=== PATIENT | female | born 1980 | race Caucasian/White ===

== ENCOUNTER 2021-06-24 13:06 | Outpatient (CLI) | payer BC ==
--- NOTE | 2021-06-25 09:14 | XRAY Report ---
PROCEDURE: Foot 3 View RT INDICATIONS: R MEDIAL FOOT PX TECHNIQUE: 3 views of the foot were acquired. COMPARISON: None. FINDINGS: Bones: No fractures or dislocations. No suspicious bony lesions. Soft tissues: No tibiotalar joint effusion. Achilles tendon appears normal. IMPRESSION: No significant osseous abnormality identified. Reviewed by: Colt Peedrson MD on 06/25/2021 9:13 AM PDT Approved by: Colt Pederson MD on 06/25/2021 9:13 AM PDT Station ID: [id number]
== END 2021-06-24 13:07 | disposition home or self-care (01) ==
LOC: DI.N 13:06
PROVIDERS: ATTEND Physician Assistant
DX: M79.671 Pain in right foot (principal)

== ENCOUNTER 2022-03-19 11:01 | Emergency (ER) | payer BC ==
[2022-03-19 11:25] LABS: BASOPHILS # (AUTO) 0.1 10^3/uL (0.0-0.1); BASOPHILS % (AUTO) 0.4 %; EOSINOPHILS # (AUTO) 0.2 10^3/uL (0.0-0.7); EOSINOPHILS % (AUTO) 1.5 %; HCT - HEMATOCRIT 44.6 % (37.0-47.0); HGB - HEMOGLOBIN 15.4 g/dL (12.0-16.0); LYMPHOCYTES # (AUTO) 0.8 10^3/uL (1.5-3.5); LYMPHOCYTES % (AUTO) 5.9 %; MEAN CORPUSCULAR HEMOGLOBIN 30.9 pg (27.0-31.0); MEAN CORPUSCULAR HGB CONC 34.5 g/dL (32.0-36.0); MEAN CORPUSCULAR VOLUME 89.6 fL (81.0-99.0); MEAN PLATELET VOLUME 9.3 fL (7.9-10.8); MONOCYTES # (AUTO) 0.5 10^3/uL (0.0-1.0); NEUTROPHILS # (AUTO) 11.9 10^3/uL (1.5-6.6); NEUTROPHILS % (AUTO) 87.8 %; PLT - PLATELET COUNT 258 10^3/uL (130-450); RED BLOOD COUNT 4.98 10^6/uL (4.20-5.40); RED CELL DISTRIBUTION WIDTH 12.5 % (12.0-15.0); WHITE BLOOD COUNT 13.6 x10^3/uL (4.8-10.8)
--- OUTSIDE RECORDS SUMMARY | 2022-03-19 11:53 | EXTERNAL MEDICAL SUMMARY RPT | Continuity of Care Document ---
:1980 Author Organization [facility] Address [address] [place] [address] Phone Care Team Providers Name Role Phone LIVAN Unavailable Unavailable MD Unavailable Unavailable PFS Unavailable Unavailable Allergies No information. Encounters No information. Medications date description facility 20220227 valacyclovir All 20220227 methocarbamol All 20220227 meloxicam All [id number] valacyclovir All [id number] methocarbamol All [id number] meloxicam All 20220227 valacyclovir All 20220227 methocarbamol All 20220227 meloxicam All Problems date description facility 20220319 Unspecified abdominal pain All 20220319 Abdominal pain, unspecified site All 20220319 Abdominal pain All 20220227 Strain of muscle, fascia and tendon of lower back, initial All encounter 20220227 Lumbar sprain All 20220227 Low back strain All Procedures date description facility 20220227 [facility] forms All 20220227 [facility] Initial Report All 20220227 [facility] All 20220227 [facility] Initial Report All 20220227 [facility] forms All 20220227 [facility] Initial Report All Results No information. Vital Signs date measurement value source 20220227 weight_standard 160 lb 20220227 weight_metric 72.57 kg 20220227 temperature_standard 98.6 F 20220227 temperature_metric 37 C 20220227 respiration_rate 16 /min 20220227 height_standard 64 in 20220227 height_metric 162.56 cm 20220227 heart_rate 70 /min [id number] BP_systolic 117 mm[Hg] 53719493 BP_diastolic 80 mm[Hg] [id number] BMI 27.56 kg/m2 20220227 weight_standard 160 lb 20220227 weight_metric 72.57 kg 20220227 temperature_standard 98.6 F 20220227 temperature_metric 37 C 20220227 respiration_rate 16 /min 20220227 height_standard 64 in 20220227 height_metric 162.56 cm [id number] heart_rate 70 /min 69441569 BP_systolic 117 mm[Hg] 24464574 BP_diastolic 80 mm[Hg] 20220227 BMI 27.56 kg/m2 20220319 weight_standard 161 lb 20220319 weight_metric 73.03 kg 20220319 temperature_standard 98.6 F 20220319 temperature_metric 37 C 20220319 respiration_rate 18 /min 20220319 height_standard 64 in 20220319 height_metric 162.56 cm 20220319 heart_rate 71 /min 20220319 BP_systolic 135 mm[Hg] 20220319 BP_diastolic 80 mm[Hg] 20220319 BMI 27.74 kg/m2
[2022-03-19 11:58] LABS: ALBUMIN 4.9 g/dL (3.2-5.5); ALBUMIN/GLOBULIN RATIO 1.5 (1.0-2.2); CALCIUM 9.4 mg/dL (8.5-10.3); CREATININE 0.6 mg/dL (0.4-1.0); TOTAL PROTEIN 8.1 g/dL (6.7-8.2)
[2022-03-19 12:00] LABS: BILIRUBIN,URINE NEGATIVE (NEGATIVE); GLUCOSE, URINE (UA) NEGATIVE (NEGATIVE); KETONES,URINE (UA) TRACE mg/dL (NEGATIVE); LEUKOCYTE ESTERASE, URINE NEGATIVE (NEGATIVE); NITRITE,URINE NEGATIVE (NEGATIVE); OCCULT BLOOD,URINE NEGATIVE (NEGATIVE); PROTEIN,URINE NEGATIVE (NEGATIVE); UROBILINOGEN,URINE 0.2 (NORMAL) E.U./dL (NORMAL)
[2022-03-19] MEDS ORDERED: KETOROLAC 15 MG/ML VIAL IVP STA (12:01)
[2022-03-19 12:06] LABS: CLARITY,URINE CLEAR (CLEAR); HCG UR QUAL NEGATIVE
--- NOTE | 2022-03-19 12:07 | ED Physician Documentation ---
PD HPI ABD PAIN - Stated complaint Stated Complaint: ABD PX - Chief complaint Chief Complaint: Abd Pain - Additional information Additional information: 41-year-old woman presents for evaluation of abdominal pain. Has a history of difficult IUD placement and required an OR prescription for IUD placement 5 years ago. Otherwise no abdominal surgeries. She has had epigastric pain radiating to the back and left lower quadrant pain all day. She is late on her menses, she should have had her menses may be 10 or 12 days ago. No test at home. She had chills this morning but no measured fever. No nausea. No changes in bowel movements. Review of Systems Ten Systems: 10 systems reviewed and negative Constitutional: reports: Chills. denies: Fever Cardiac: denies: Chest pain / pressure, Palpitations Respiratory: denies: Dyspnea, Cough PD PAST MEDICAL HISTORY - Present Medications Home Medications: Ambulatory Orders Medication Instructions Recorded Confirmed Omeprazole 40 mg PO DAILY #30 cap 03/19/22 - Allergies Allergies/Adverse Reactions: Allergies Allergy/AdvReac Type Severity Reaction Status Date / Time erythromycin base Allergy Unknown Verified 03/19/22 11:46 Penicillins Allergy Unknown Verified 03/19/22 11:46 soy Allergy Unknown Verified 03/19/22 11:46 PD ED PE NORMAL - Vitals Vital signs reviewed: Yes - General General: Alert and oriented X 3, No acute distress - HEENT HEENT: PERRL, EOMI - Neck Neck: Supple, no meningeal sign, No bony TTP - Cardiac Cardiac: RRR, No murmur - Respiratory Respiratory: No respiratory distress, Clear bilaterally - Abdomen Abdomen: Other (Mild diffuse tenderness especially left upper and lower quadrants without surgical signs) - Back Back: No CVA TTP, No spinal TTP - Derm Derm: Normal color, Warm and dry - Extremities Extremities: No edema, No calf tenderness / cord - Neuro Neuro: Alert and oriented X 3, Normal speech Results - Vitals Vitals: Vital Signs - 24 hr 03/19/22 11:34 Temperature 36.9 C Heart Rate 66 Respiratory 20 Rate Blood Pressure 117/74 O2 Saturation 98 Oxygen O2 Source Room air - Labs Labs: Laboratory Tests 03/19/22 03/19/22 03/19/22 11:19 11:19 11:43 WBC 13.6 H RBC 4.98 Hgb 15.4 Hct 44.6 MCV 89.6 MCH 30.9 MCHC 34.5 RDW 12.5 Plt Count 258 MPV 9.3 Neut # (Auto) 11.9 H Lymph # (Auto) 0.8 L [place] # (Auto) 0.5 Eos # (Auto) 0.2 Baso # (Auto) 0.1 Absolute Nucleated RBC 0.00 Nucleated RBC % 0.0 Sodium 140 Potassium 4.0 Chloride 105 Carbon Dioxide 24 Anion Gap 11.0 BUN 15 Creatinine 0.6 Estimated GFR (MDRD) 111 Glucose 95 Calcium 9.4 Total Bilirubin 1.0 AST 16 ALT 18 Alkaline Phosphatase 77 Total Protein 8.1 Albumin 4.9 Globulin 3.2 Albumin/Globulin Ratio 1.5 Lipase 33 Urine Color YELLOW Urine Clarity CLEAR Urine pH 6.0 Ur Specific Leivasy >=1.030 H Urine Protein NEGATIVE Urine Glucose (UA) NEGATIVE Urine Ketones TRACE Urine Occult Blood NEGATIVE Urine Nitrite NEGATIVE Urine Bilirubin NEGATIVE Urine Urobilinogen 0.2 (NORMAL) Ur Leukocyte Esterase NEGATIVE Ur Microscopic Review NOT INDICATED Urine Culture Comments NOT INDICATED Urine HCG, Qual NEGATIVE PD MEDICAL DECISION MAKING - ED course ED course: She presents with left-sided abdominal pain. Fairly benign exam. CT imaging negative, labs showing mild leukocytosis and not much else. On reexamination prior to discharge still no right-sided abdominal tenderness. She says pain is much milder than previous ovarian cysts. Departure - Departure Disposition: 01 Home, Self Care Clinical Impression: Abdominal pain Condition: Good Record reviewed to determine appropriate education?: Yes Instructions: ED Abdominal Pain Female Non-Specific Abdominal Pain Prescriptions: Omeprazole 40 mg PO DAILY #30 cap Comments: I sent your prescription electronically to [facility] in [place]. As discussed by process of illumination this pain likely represents gastritis. Return if you worsen or are not better in the next 2 days. Follow-up with your primary care physician next week regardless.
[2022-03-19] MEDS ORDERED: IOPAMIDOL-300 100 ML VIAL ONE (12:21)
[2022-03-19] MEDS ORDERED: SODIUM CHLORIDE 0.9% 1,000 ML IV STA (12:46)
--- NOTE | 2022-03-19 13:24 | CT Report ---
PROCEDURE: Abdomen/Pelvis W INDICATIONS: IV only, L abd pain CONTRAST: IV CONTRAST: Isovue 300 ml: 100 PO CONTRAST: *NO PO CONTRAST TECHNIQUE: After the administration of intravenous contrast, 5 mm thick sections acquired from the diaphragms to the symphysis. 5 mm thick coronal and sagittal reformats were acquired. For radiation dose reducti on, the following was used: automated exposure control, adjustment of mA and/or kV according to carlitos ent size. COMPARISON: None. FINDINGS: Image quality: Excellent. ABDOMEN: Lung bases: Lung bases are clear. Heart size is normal. Solid organs: Liver and spleen are normal in size and enhancement. Gallbladder is unremarkable. Bi liary system is non dilated. Pancreas enhances normally. No adrenal nodules. Kidneys demonstrate n ormal size and enhancement, without hydronephrosis. Peritoneum and bowel: Bowel loops demonstrate normal wall thickness and caliber. No free fluid or a ir. Nodes and vessels: No retroperitoneal or mesenteric adenopathy by size criteria. Aorta and inferior vena cava are normal in size. Incidental note made of presence of a circumaortic left renal vein. Miscellaneous: No ventral hernias. PELVIS: Genitourinary: Bladder wall thickness is normal. Miscellaneous: No inguinal hernias or adenopathy. IUD appears to be centered in the endometrial cav ity. Bones: No suspicious bony lesions. No vertebral body compression fractures. IMPRESSION: 1. IUD. 2. No evidence of acute abdominal process. Reviewed by: Roge Lewis MD on 03/19/2022 1:23 PM PDT Approved by: Roge Lewis MD on 03/19/2022 1:23 PM PDT Station ID: [id number]
[2022-03-19] MEDS ORDERED: PANTOPRAZOLE 40 MG VIAL IVP STA (13:47)
[2022-03-19 15:13] VITALS: BP 119/77
[2022-03-19] MEDS ORDERED: IOPAMIDOL-300 100 ML VIAL IVP ONE (18:39)
== END 2022-03-19 15:15 | disposition home or self-care (01) ==
LOC: ED 11:01
DX: R10.9 Unspecified abdominal pain (principal)
CPT/HCPCS: 36415; 74177; 80053; 81003; 81025; 83690; 85025; 96374; 96375; 99283; 99284; Q9967; 81001; 87086

== ENCOUNTER 2024-04-12 14:07 | Outpatient (CLI) | payer OTHER ==
[2024-04-12 14:20] LABS: BASOPHILS % (AUTO) 0.7 %; EOSINOPHILS # (AUTO) 0.1 10^3/uL (0.0-0.7); HCT - HEMATOCRIT 41.8 % (37.0-47.0); HGB - HEMOGLOBIN 13.8 g/dL (12.0-16.0); LYMPHOCYTES # (AUTO) 2.2 10^3/uL (1.5-3.5); LYMPHOCYTES % (AUTO) 39.2 %; MEAN CORPUSCULAR HEMOGLOBIN 29.7 pg (27.0-31.0); MEAN CORPUSCULAR VOLUME 89.9 fL (81.0-99.0); MEAN PLATELET VOLUME 9.5 fL (7.9-10.8); MONOCYTES # (AUTO) 0.4 10^3/uL (0.0-1.0); MONOCYTES % (AUTO) 7.3 %; NEUTROPHILS # (AUTO) 2.8 10^3/uL (1.5-6.6); NEUTROPHILS % (AUTO) 50.4 %; PLT - PLATELET COUNT 231 10^3/uL (130-450); RED BLOOD COUNT 4.65 10^6/uL (4.20-5.40); RED CELL DISTRIBUTION WIDTH 12.5 % (12.0-15.0); WHITE BLOOD COUNT 5.6 x10^3/uL (4.8-10.8)
[2024-04-12 14:49] LABS: THYROID STIMULATING HORMONE 2.02 uIU/mL (0.34-5.60)
== END 2024-04-12 14:08 | disposition home or self-care (01) ==
LOC: LAB 14:07
PROVIDERS: ATTEND Obstetrics & Gynecology
DX: N93.9 Abnormal uterine and vaginal bleeding, unspecified (principal)
CPT/HCPCS: 36415; 84443; 85025

== ENCOUNTER 2024-04-25 17:02 | Outpatient (CLI) | payer OTHER ==
--- NOTE | 2024-04-26 10:10 | Ultrasound Report ---
PROCEDURE: Pelvic w/Transvaginal INDICATIONS: AUB TECHNIQUE: Real-time scanning was performed of the pelvic organs, with image documentation. Additional endovagi nal scanning was necessary due to incomplete visualization of the adnexal and endometrial structures by transabdominal scanning. COMPARISON: CT abdomen pelvis 03/19/2022 FINDINGS: Uterus: Uterus is anteverted and normal in size at 7.7 x 3.0 x 4.1 cm. The myometrium is minimally heterogeneous without dominant mass. An IUD is in appropriate position in the endometrium.. The endo metrium measures 2.2 mm in combined thickness. Normal vascularity in the uterus. Normal-appearing ce rvix. Ovaries: The right ovary measures 3.2 x 1.5 x 3.0 cm, with a calculated ovarian volume of 7.3 cc. T he left ovary measures 2.0 x 1.4 x 2.0 cm, with a calculated ovarian volume of 2.9 cc. The ovaries h ave a normal sonographic appearance. Less than 12 follicles can be seen in each ovary. Between the uterus and left ovary, there is an ovoid soft tissue nodule measuring 1.6 x 1.0 0.4 cm wi th soft tissue echotexture, potentially a few echogenic shadowing foci. No dense posterior shadow. No internal vascularity. Other: No pathologic free abdominal or pelvic fluid. IMPRESSION: IUD in appropriate position. The endometrium is normal thickness given presence of an IUD. No suspici ous uterine mass. 1.6 cm left adnexal nodule of uncertain etiology. This may be a pedunculated fibroid, diverticulum ar ising from bowel, less likely endometrioma. No correlate on CT scan from greater than 2 years ago. This is of uncertain clinical significance. If further evaluation is needed, MR imaging of the pelvis is recommended. Alternatively, 3-6 month follow-up ultrasound could be performed. Reviewed by: Tori Oliveira MD on 04/26/2024 10:09 AM PDT Approved by: Tori Oliveira MD on 04/26/2024 10:09 AM PDT Station ID: [id number]
== END 2024-04-25 17:03 | disposition home or self-care (01) ==
LOC: DI 17:02
PROVIDERS: ATTEND Obstetrics & Gynecology
DX: N93.9 Abnormal uterine and vaginal bleeding, unspecified (principal); N94.4 Primary dysmenorrhea; Z97.5 Presence of (intrauterine) contraceptive device; R93.89 Abnormal findings on diagnostic imaging of other specified body structures

== ENCOUNTER 2024-06-22 08:46 | Day surgery (SDC) | payer OTHER ==
[2024-06-22] MEDS: LACTATED RINGERS 1,000 ML IV ONE ×2 (08:54→10:51)
[2024-06-22 09:28] LABS: BASOPHILS % (AUTO) 0.5 %; EOSINOPHILS # (AUTO) 0.1 10^3/uL (0.0-0.7); EOSINOPHILS % (AUTO) 2.3 %; HCT - HEMATOCRIT 40.4 % (37.0-47.0); HGB - HEMOGLOBIN 13.5 g/dL (12.0-16.0); LYMPHOCYTES # (AUTO) 1.5 10^3/uL (1.5-3.5); LYMPHOCYTES % (AUTO) 38.4 %; MEAN CORPUSCULAR HEMOGLOBIN 30.3 pg (27.0-31.0); MEAN CORPUSCULAR HGB CONC 33.4 g/dL (32.0-36.0); MEAN CORPUSCULAR VOLUME 90.6 fL (81.0-99.0); MEAN PLATELET VOLUME 9.6 fL (7.9-10.8); MONOCYTES # (AUTO) 0.4 10^3/uL (0.0-1.0); MONOCYTES % (AUTO) 11.5 %; NEUTROPHILS # (AUTO) 1.8 10^3/uL (1.5-6.6); PLT - PLATELET COUNT 213 10^3/uL (130-450); RED BLOOD COUNT 4.46 10^6/uL (4.20-5.40); RED CELL DISTRIBUTION WIDTH 12.5 % (12.0-15.0); WHITE BLOOD COUNT 3.8 x10^3/uL (4.8-10.8)
--- NOTE | 2024-06-22 09:40 | ANESTHESIA ---
Pre-Anesthesia VS, & Labs - Diagnosis abnormal uterine bleeding - Procedure IUD placement, IUD removal Vital Signs: Temp Pulse Resp BP Pulse Ox O2 Flow Rate 36.4 C L 71 17 113/72 97 06/22/24 09:08 06/22/24 09:08 06/22/24 09:08 06/22/24 09:08 06/22/24 09:08 Height: 5 ft 4 in Weight (kg): 69.6 kg Body Mass Index: 26.3 BMI Classification: Overweight - NPO >8 hours - Is Patient ?: No - Lab Results Current Lab Results: Laboratory Tests 06/22/24 09:19: WBC 3.8 L, RBC 4.46, Hgb 13.5, Hct 40.4, MCV 90.6, MCH 30.3, MCHC 33.4, RDW 12.5, Plt Count 213, MPV 9.6, Neut # (Auto) 1.8, Lymph # (Auto) 1.5, [place] # (Auto) 0.4, Eos # (Auto) 0.1, Baso # (Auto) 0.0, Absolute Nucleated RBC 0.00, Nucleated RBC % 0.0 Fish Bones: 06/22/24 09:19 Home Medications and Allergies Home Medications: Ambulatory Orders Albuterol Sulfate [Proair Respiclick] 90 mcg IH DAILY PRN 06/19/24 Fluticasone [Flonase] 1 sprays REINALDO DAILY 06/19/24 valACYclovir [Valtrex] 500 mg PO DAILY 06/19/24 Albuterol Sulfate [Proair Respiclick] 90 mcg IH DAILY PRN 06/19/24 Fluticasone [Flonase] 1 sprays REINALDO DAILY 06/19/24 valACYclovir [Valtrex] 500 mg PO DAILY 06/19/24 Allergies/Adverse Reactions: Allergies Allergy/AdvReac Type Severity Reaction Status Date / Time erythromycin base Allergy Unknown Verified 03/19/22 11:46 Penicillins Allergy Unknown Verified 03/19/22 11:46 soy Allergy Unknown Verified 03/19/22 11:46 Anes History & Medical History - Anesthetic History Anesthesia Complications: reports: No previous complications Family history of Anesthesia Complications: Denies Family history of Malignant Hyperthermia: Denies - Medical History Cardiovascular: reports: None Pulmonary: reports: Asthma Gastrointestinal: reports: None Urinary: reports: None Musculoskeletal: reports: None Endocrine/Autoimmune: reports: None Skin: reports: None, Other Smoking Status: Never smoker Psychosocial: reports: No issues indicated History of Cancer?: No - Surgical History Gynecologic: reports: Other (IUD placement in the OR) Exam General: Alert, Oriented x3, Cooperative Dental: WNL Mouth Openin Fingerbreadth Neck Mobility: Normal Mallampati classification: I Thyromental Distance: 4-6 cm Respiratory: Lungs clear Cardiovascular: Regular rate Plan Anesthesia Type: General Consent for Procedure(s) Verified and Reviewed: Yes Code Status: Attempt Resuscitation ASA classification: 1-Healthy patient Is this case an emergency?: No
--- NOTE | 2024-06-22 09:40 | ANESTHESIA ---
Pre-Anesthesia VS, & Labs - Diagnosis abnormal uterine bleeding - Procedure IUD removal, IUD placement Vital Signs: Temp Pulse Resp BP Pulse Ox O2 Flow Rate 36.4 C L 71 17 113/72 97 06/22/24 09:08 06/22/24 09:08 06/22/24 09:08 06/22/24 09:08 06/22/24 09:08 Height: 5 ft 4 in Weight (kg): 69.6 kg Body Mass Index: 26.3 BMI Classification: Overweight - NPO >8 hours - Is Patient ?: No - Lab Results Current Lab Results: Laboratory Tests 06/22/24 09:19: WBC 3.8 L, RBC 4.46, Hgb 13.5, Hct 40.4, MCV 90.6, MCH 30.3, MCHC 33.4, RDW 12.5, Plt Count 213, MPV 9.6, Neut # (Auto) 1.8, Lymph # (Auto) 1.5, [place] # (Auto) 0.4, Eos # (Auto) 0.1, Baso # (Auto) 0.0, Absolute Nucleated RBC 0.00, Nucleated RBC % 0.0 Fish Bones: 06/22/24 09:19 Home Medications and Allergies Home Medications: Ambulatory Orders Albuterol Sulfate [Proair Respiclick] 90 mcg IH DAILY PRN 06/19/24 Fluticasone [Flonase] 1 sprays REINALDO DAILY 06/19/24 valACYclovir [Valtrex] 500 mg PO DAILY 06/19/24 Albuterol Sulfate [Proair Respiclick] 90 mcg IH DAILY PRN 06/19/24 Fluticasone [Flonase] 1 sprays REINALDO DAILY 06/19/24 valACYclovir [Valtrex] 500 mg PO DAILY 06/19/24 Allergies/Adverse Reactions: Allergies Allergy/AdvReac Type Severity Reaction Status Date / Time erythromycin base Allergy Unknown Verified 03/19/22 11:46 Penicillins Allergy Unknown Verified 03/19/22 11:46 soy Allergy Unknown Verified 03/19/22 11:46 Anes History & Medical History - Anesthetic History Anesthesia Complications: reports: No previous complications Family history of Anesthesia Complications: Denies Family history of Malignant Hyperthermia: Denies - Medical History Cardiovascular: reports: None Pulmonary: reports: Asthma Gastrointestinal: reports: None Urinary: reports: None Neuro: reports: None Musculoskeletal: reports: None Endocrine/Autoimmune: reports: None Blood Disorders: reports: None Skin: reports: None, Other Smoking Status: Never smoker Psychosocial: reports: Anxiety History of Cancer?: No - Surgical History Gynecologic: reports: Other (IUD placement in the OR under [place]) Exam General: Alert, Oriented x3, Cooperative Dental: WNL Mouth Openin Fingerbreadth Neck Mobility: Normal Mallampati classification: I Thyromental Distance: 4-6 cm Respiratory: Lungs clear Cardiovascular: Regular rate Plan Anesthesia Type: General Consent for Procedure(s) Verified and Reviewed: Yes Code Status: Attempt Resuscitation ASA classification: 1-Healthy patient Is this case an emergency?: No
[2024-06-22] MEDS ORDERED: fentaNYL 100 MCG/2 ML VIAL IVP PRN (09:44)
[2024-06-22] MEDS ORDERED: METOCLOPRAMIDE 10 MG/2 ML VIAL IVP PRN (09:44)
[2024-06-22] MEDS ORDERED: ePHEDrine 50 MG/ML VIAL IVP PRN (09:44)
[2024-06-22] MEDS ORDERED: ATROPINE ABBOJECT 1 MG/10 ML SYRINGE IVP PRN (09:44)
[2024-06-22] MEDS ORDERED: ONDANSETRON 4 MG/2 ML VIAL IVP PRN (09:44)
[2024-06-22] MEDS ORDERED: NALOXONE 0.4 MG/ML VIAL IVP PRN (09:44)
[2024-06-22] MEDS ORDERED: MORPHINE 2 MG/ML CARPUJECT IVP PRN (09:44)
[2024-06-22] MEDS ORDERED: LACTATED RINGERS 1,000 ML IV SCH (10:00)
[2024-06-22 10:01] LABS: HCG UR QUAL NEGATIVE
[2024-06-22] MEDS: LEVONORGESTREL 20 MCG/24H IUD IY ONE (10:40)
[2024-06-22] MEDS: HYDROmorphone 0.5 MG/0.5 ML SYRINGE IVP PRN (11:04)
--- NOTE | 2024-06-22 11:08 | OPERATIVE REPORT ---
Operative Report - Other Other Information/Narrative: DATE OF PROCEDURE: 06/22/2024 Surgeon: Ai Huynh MD Assistants: none Pre-Op Diagnosis: misplaced IUD strings (lateral to cervical canal), abnormal uterine bleeding Post-Op Diagnosis: Same Procedures: Mirena IUD removal, Mirena IUD insertion, endometrial biopsy Findings: IUD strings visible protruding through the cervix approximately 1cm lateral to the external os, + cervical stenosis. Uterus small and mobile, no adnexal masses appreciated. Uterus sounded to 7.5cm. Specimens: endometrial biopsy Anesthesia Technique: General Estimated Blood Loss (mls): 2cc. Blood Replacement (mls): None Fluid Replacement (mls): 200cc LR Drains: none Complications: None Condition: Stable Procedure Details: The patient was taken to the operating room and general anesthesia was administered. Patient was then placed in the dorsal lithotomy position in Sharan stirrips and prepped and draped in the usual sterile fashion. Exam under anesthesia was performed with the above findings. A speculum was placed in the vagina and an allis clamp was used to grasp the anterior lip of the cervix. An os finder was placed through the cervical canal and with this I was able to visualize strings in the canal. An IUD hook was used to bring the strings outside of the cervix. The IUD strings were grasped with a ring forcep and IUD removed intact. Endometrial curettings were then obtained with 5 passes using an endometrial biopsy pipelle. The uterus sounded to 7.5cm. A new Mirena IUD was placed at the uterine fundus using the insertor device, without difficulty. The strings were trimmed to 3cm. The allis clamp was removed. Hemostasis not ed. All instruments were removed from the vagina. The patient tolerated the procedure well and was returned to the PACU in stable condition. Ai Huynh MD
[2024-06-22] MEDS ORDERED: KETOROLAC 15 MG/ML VIAL ONE (11:40)
[2024-06-22] MEDS: KETOROLAC 15 MG/ML VIAL IVP STA (11:41)
[2024-06-22 11:55] VITALS: O2SAT 99
[2024-06-22 12:17] VITALS: BP 114/85
--- NOTE | 2024-06-22 14:12 | ANESTHESIA POST OP EVALUATION ---
Anesthesia Post Eval - Post Anesthesia Eval Vitals: Last Vital Signs Temp 36.6 C 06/22/24 11:49 Pulse 56 L 06/22/24 12:14 Resp 16 06/22/24 12:14 BP 114/85 H 06/22/24 12:14 Pulse Ox 99 06/22/24 12:14 O2 Flow Rate CV Function Including HR & BP: Stable Pain Control: Satisfactory Nausea & Vomiting: Negative Mental Status: Baseline Respiratory Status: Airway Patent Hydration Status: Satisfactory Anesthesia Complications: None
== END 2024-06-22 08:47 | disposition home or self-care (01) ==
LOC: OR 08:46
PROVIDERS: ATTEND Obstetrics & Gynecology
PROC: 0U2DXHZ Change Contraceptive Device in Uterus and Cervix, External Approach (ICD-10-PCS; 2024-06-22)
PROC: 0UDB7ZX Extraction of Endometrium, Via Natural or Artificial Opening, Diagnostic (ICD-10-PCS; principal; 2024-06-22 10:00)
DX: N93.9 Abnormal uterine and vaginal bleeding, unspecified (principal); T83.32XA Displacement of intrauterine contraceptive device, initial encounter; Z30.433 Encounter for removal and reinsertion of intrauterine contraceptive device; N88.2 Stricture and stenosis of cervix uteri; J45.909 Unspecified asthma, uncomplicated
CPT/HCPCS: 58100; 58300; 58301; 81025; 85025; J7120; J7298